=== PATIENT | male | born 1980 | race Caucasian/White ===

== ENCOUNTER 2018-10-08 10:59 | Emergency (ER) | payer SELFPAY ==
[~2018-10-08] VITALS: Ht 175.3 cm; Wt 81.6 kg
--- NOTE | 2018-10-08 11:03 | NUR ---
PREBOOK. [facility] TO THE ED WITH THE CHIEF C/O RIGHT SHOULDER PAIN. STATES PAIN OF 8/10. DENIES ANY FALL OR INJURY. STATES PAIN OF 810. DENIES MEDICAL HX. DENIES ANY OTHER PROBLEM AT THIS TIME.
[2018-10-08 11:04] VITALS: BP 119/78
--- NOTE | 2018-10-08 11:15 | NUR ---
PT BEING EVALUATED BY ALEXANDRA RENDON.
--- NOTE | 2018-10-08 11:22 | NUR ---
PT TAKEN TO [facility] VIA WHEELCHAIR AT THIS TIME.
--- NOTE | 2018-10-08 11:26 | NUR ---
PT RETURNED FROM [facility] VIA WHEELCHAIR AT THIS TIME.
[2018-10-08 11:40] VITALS: BP 119/78
--- NOTE | 2018-10-08 11:40 | NUR ---
Patient discharged with v/s stable. Written and verbal after care instructions given and explained. Patient verbalized understanding. Police with in custody. All questions addressed prior to discharge. Advised to follow up with PMD.
== END 2018-10-08 11:40 ==
LOC: MED 10:59
DX: G89.29 Other chronic pain (principal); M25.511 Pain in right shoulder; F17.200 Nicotine dependence, unspecified, uncomplicated
CPT/HCPCS: 73020; 99283